=== PATIENT | male | born 1995 | race Caucasian/White ===

== ENCOUNTER 2020-02-21 00:21 | Emergency (ER) | payer BC ==
[~2020-02-21] VITALS: Ht 182.9 cm; Wt 80.9 kg
[2020-02-21 00:36] VITALS: Ht 182.9 cm; Wt 80.9 kg
[2020-02-21 01:58] LABS: CALCIUM 8.8 mg/dL (8.5-10.1); CARBON DIOXIDE 31.1 mmol/L (21-32); CHLORIDE SERUM 102 mmol/L (98-107); GFR1 > 60 mL/min; GLUCOSE SERUM 112 mg/dL (74-106); MAGNESIUM 2.1 mg/dL (1.8-2.4); POTASSIUM SERUM 3.5 mmol/L (3.5-5.1); SODIUM SERUM 139 mmol/L (136-145)
[2020-02-21 02:03] LABS: PLATELET COUNT 184 x10^3mcL (130-400); RED CELL DISTRIBUTION WIDTH 11.9 % (11.5-14.5)
[2020-02-21 02:17] LABS: BAND NEUTROPHIL 5 % (0-10); SEGMENTED NEUTROPHILS 70 % (37-75)
[2020-02-21 02:18] LABS: MONOCYTE 5 % (0-7); PLATELET MORPHOLOGY PLATELETS NORMAL; rbc morphology (normal/abnorm) NORMAL (NORMAL)
[2020-02-21 05:42] VITALS: BP 141/97
== END 2020-02-21 05:42 | disposition home or self-care (01) ==
LOC: ED 00:21
PROVIDERS: Emergency Medicine
DX: I10 Essential (primary) hypertension (principal); R42 Dizziness and giddiness
CPT/HCPCS: J7030; J8597